=== PATIENT | female | born 2000 | race Hispanic/Latino ===

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

== ENCOUNTER 2023-06-29 01:16 | Emergency (ER) | payer OTHER, SELFPAY ==
[2023-06-29] MEDS ORDERED: Ibuprofen 200 MG TAB ONE ×2 (01:50→01:54)
== END 2023-06-29 03:00 | disposition home or self-care (01) ==
LOC: ERS 01:16
DX: S06.0X9A Concussion with loss of consciousness of unspecified duration, initial encounter (principal); W10.8XXA Fall (on) (from) other stairs and steps, initial encounter